=== PATIENT | male | born 1965 | race Caucasian/White ===

== ENCOUNTER 2021-02-20 14:17 | Emergency (ER) | payer BC ==
[2021-02-20] MEDS ORDERED: Lidocaine 1% 10 ML MDV INJECT ONE (15:10)
--- NOTE | 2021-02-20 16:01 | EDM.PDOC ---
ED HPI GENERAL MEDICAL PROBLEM - General Chief Complaint: Laceration Stated Complaint: GENITAL COMPLAINT Time Seen by Provider: 02/20/21 14:36 Source of Information: Reports: Patient, Family, RN Notes Reviewed History Limitations: Reports: No Limitations - History of Present Illness INITIAL COMMENTS - FREE TEXT/NARRATIVE: Patient is a 55-year-old male presenting to the emergency department with complaints of a laceration to the left side of his scrotum. He states he was standing on a ladder that was approximately 2 feet off the ground when he slid off of it. His scrotum hooked on a garbage can causing laceration. He has no pain to the area. He is on Coumadin for a clotting disorder. He states that he is up-to-date on his tetanus vaccination - Related Data Allergies Allergy/AdvReac Type Severity Reaction Status Date / Time cyclosporine AdvReac Severe Seizure Verified 02/20/21 14:34 Home Meds: Home Meds Losartan Potassium 100 mg PO DAILY 02/20/21 [History] Warfarin [Coumadin] 7.5 mg PO DAILY 02/20/21 [History] lamoTRIgine [Lamotrigine] 100 mg PO DAILY 02/20/21 [History] levETIRAcetam [Keppra] 500 mg PO DAILY 02/20/21 [History] Past Medical History Cardiovascular History: Reports: Hypertension Neurological History: Reports: Seizure Social & Family History - Tobacco Use Tobacco Use Status *Q: Never Tobacco User - Caffeine Use Caffeine Use: Reports: Coffee - Recreational Drug Use Recreational Drug Use: No ED ROS GENERAL - Review of Systems Review Of Systems: Comprehensive ROS is negative, except as noted in HPI. ED EXAM, SKIN/RASH Exam: See Below Exam Limited By: No Limitations General Appearance: Alert, WD/WN, No Apparent Distress Respiratory/Chest: No Respiratory Distress, Lungs Clear, Normal Breath Sounds, No Accessory Muscle Use, Chest Non-Tender Cardiovascular: Normal Peripheral Pulses, Regular Rate, Rhythm, No Edema, No Gallop, No JVD, No Murmur, No Rub (Male) Exam: Other (1 cm laceration to the left scrotum. No tenderness to palpation of the scrotum or testicles. No active bleeding.). No: Scrotal Swelling, Scrotum Tenderness (L), Scrotum Tenderness (R), Testicular Mass, Testicular Tenderness (L), Testicular Tenderness (R) Neurological: Alert, Oriented, CN II-XII Intact, Normal Cognition, Normal Gait, Normal Reflexes, No Motor/Sensory Deficits Psychiatric: Normal Affect, Normal Mood ED SKIN PROCEDURES - Laceration/Wound Repair Left Scrotum Appearance: Subcutaneous Anesthetic Type: Local Local Anesthesia - Lidocaine (Xylocaine): 1% Plain Local Anesthetic Volume: 1cc Skin Prep: Chlorhexidine (Hibiciens), Providone-Iodine (Betadine), Saline, Sterile Drape Exploration/Debridement/Repair: Wound Explored, No Foreign Material Found Closed with: Sutures Lac/Wound length In cm: 1 Suture Size: 4-0 # of Sutures: 3 Suture Type: Nylon Sterile Dressing Applied: Nurse Tetanus Status Addressed: Yes Complications: No Course - Vital Signs Last Recorded V/S: Last Vital Signs Temp 97.6 F 02/20/21 14:31 Pulse 54 L 02/20/21 14:31 Resp 16 02/20/21 14:31 BP 129/91 H 02/20/21 14:31 Pulse Ox 99 02/20/21 14:31 - Orders/Labs/Meds Meds: Medications Discontinued Medications Generic Name Dose Route Start Last Admin Trade Name Julian PRN Reason Stop Dose Admin Lidocaine HCl 10 ml 02/20/21 15:10 02/20/21 15:49 Lidocaine 1% 10 Ml Mdv INJECT 02/20/21 15:11 10 ml ONETIME ONE Administration - Re-Assessments/Exams Free Text/Narrative Re-Assessment/Exam: Patient is a 55-year-old male presenting to the emergency department with complaints of a laceration to his left scrotum. He states he was standing on approximately 3 foot ladder when he fell off. On the way down his scrotum snagged a garbage can. He denies any pain to the area. The testicles are not tender to palpation. There is no active bleeding at this time. Patient is on Coumadin and checks his INR weekly. He is up-to-date on his tetanus vaccination. See procedure notes for closure. Discharge instructions as documented. Departure - Departure Time of Disposition: 15:59 Disposition: Home, Self-Care 01 Condition: Good Clinical Impression: Laceration of scrotum Qualifiers: Encounter type: initial encounter Qualified Code(s): S31.31XA - Laceration without foreign body of scrotum and testes, initial encounter - Discharge Information *PRESCRIPTION DRUG MONITORING PROGRAM REVIEWED*: No *COPY OF PRESCRIPTION DRUG MONITORING REPORT IN PATIENT SURESH: No Instructions: Laceration Care, Adult Referrals: Fortino Escalona MD [Primary Care Provider] - Forms: ED Department Discharge Additional Instructions: You were seen in the emergency department today for a laceration to your scrotum. The wound was cleansed and closed with 3 sutures. These should stay intact for 7 days. After that time they may be removed in the clinic by a nurse. The number to schedule a nurse visit is [phone]. Keep the wound clean and dry. Wash with normal soap and water twice daily. You may shower like normal. Do not submerge the wound in water. Watch for signs of infection including increased redness, swelling, or purulent drainage. If these should occur, you should be seen either in the clinic or in the emergency department as antibiotic treatment may be needed. Return to the ER as needed. Sepsis Event Note (ED) - Evaluation Sepsis Screening Result: No Definite Risk - Focused Exam Vital Signs: Vital Signs Temp Pulse Resp BP Pulse Ox 02/20/21 14:31 97.6 F 54 L 16 129/91 H 99
== END 2021-02-20 16:00 | disposition home or self-care (01) ==
LOC: JD.ED 14:17
DX: S31.31XA Laceration without foreign body of scrotum and testes, initial encounter (principal); I10 Essential (primary) hypertension; R56.9 Unspecified convulsions; Z88.8 Allergy status to other drugs, medicaments and biological substances; Z79.01 Long term (current) use of anticoagulants; Z79.899 Other long term (current) drug therapy; W11.XXXA Fall on and from ladder, initial encounter; Y92.89 Other specified places as the place of occurrence of the external cause; Y99.0 Civilian activity done for income or pay
CPT/HCPCS: 12001; 99282; 99282-25

== ENCOUNTER 2021-02-25 12:27 | Emergency (ER) | payer BC ==
--- NOTE | 2021-02-25 13:01 | EDM.PDOC ---
ED HPI GENERAL MEDICAL PROBLEM - General Chief Complaint: General Stated Complaint: LOWER ABDONMEN PAIN DUE TO ACCIDENT Time Seen by Provider: 02/25/21 12:39 Source of Information: Reports: Patient History Limitations: Reports: No Limitations - History of Present Illness INITIAL COMMENTS - FREE TEXT/NARRATIVE: The patient presents with scrotal swelling and ecchymosis. Five days ago he was on a ladder and fell and landed on a pipe on his scrotum. He had a 1cm laceration that was repaired here. He is on coumadin for antiphospholipid syndrome. He says the swelling and pain are worse. He has no trouble urinating. He has no abdominal pain. Onset: Sudden Duration: Day(s): Location: Reports: Other (scrotum) Quality: Reports: Sharp Severity: Moderate Improves with: Reports: None Worsens with: Reports: None Associated Symptoms: Reports: No Other Symptoms Left Scrotum Pain Score (Numeric/FACES): 7 - Related Data Allergies Allergy/AdvReac Type Severity Reaction Status Date / Time cyclosporine AdvReac Severe Seizure Verified 02/25/21 12:43 Home Meds: Home Meds Losartan Potassium 100 mg PO DAILY 02/20/21 [History] Warfarin [Coumadin] 7.5 mg PO DAILY 02/20/21 [History] lamoTRIgine [Lamotrigine] 100 mg PO DAILY 02/20/21 [History] levETIRAcetam [Keppra] 500 mg PO DAILY 02/20/21 [History] Past Medical History HEENT History: Reports: Impaired Vision Cardiovascular History: Reports: Hypertension Neurological History: Reports: Seizure Social & Family History - Tobacco Use Tobacco Use Status *Q: Never Tobacco User Second Hand Smoke Exposure: No - Caffeine Use Caffeine Use: Reports: Coffee, Tea - Recreational Drug Use Recreational Drug Use: No ED ROS GENERAL - Review of Systems Review Of Systems: See Below Constitutional: Reports: No Symptoms HEENT: Reports: No Symptoms Respiratory: Reports: No Symptoms Cardiovascular: Reports: No Symptoms Endocrine: Reports: No Symptoms GI/Abdominal: Reports: No Symptoms : Reports: Other (Sweeling, pain and ecchymosis to his scrotum) ED EXAM, GENERAL - Physical Exam Exam: See Below Exam Limited By: No Limitations General Appearance: Alert, No Apparent Distress Ears: Normal External Exam Nose: Normal Inspection Head: Atraumatic, Normocephalic Neck: Normal Inspection Respiratory/Chest: No Respiratory Distress, Lungs Clear, Normal Breath Sounds Cardiovascular: Regular Rate, Rhythm, No Edema, No Murmur GI/Abdominal: Soft, Non-Tender, No Organomegaly, No Mass (Male) Exam: Other (Edema of the scrotum with ecchymosis and pain upon palpation. There is also a 1cm laceration to the left scrotum with sutures. There is also ecchymosis and swelling to the tissue above the pubis and to the left and right groin.) Course - Vital Signs Last Recorded V/S: Last Vital Signs Temp 98.5 F 02/25/21 12:38 Pulse 56 L 02/25/21 12:38 Resp 12 02/25/21 12:38 BP 147/86 H 02/25/21 12:38 Pulse Ox 99 02/25/21 12:38 - Orders/Labs/Meds Orders: Active Orders 24 hr Category Date Time Status Cardiac Monitoring [RC] . DIRECTED Care 02/25/21 12:54 Active Labs: Laboratory Tests 02/25/21 02/25/21 02/25/21 Range/Units 13:04 13:04 13:04 WBC 6.22 (4.23-9.07) K/mm3 RBC 4.33 L (4.63-6.08) M/mm3 Hgb 13.2 L (13.7-17.5) gm/dl Hct 37.1 L (40.1-51.0) % MCV 85.7 D (79.0-92.2) fl MCH 30.5 (25.7-32.2) pg MCHC 35.6 H (32.2-35.5) g/dl RDW Std Deviation 35.6 (35.1-43.9) fL Plt Count 218 D (163-337) K/mm3 MPV 9.5 (9.4-12.3) fl Neut % (Auto) 68.1 H (34.0-67.9) % Lymph % (Auto) 20.9 L (21.8-53.1) % [place] % (Auto) 8.7 (5.3-12.2) % Eos % (Auto) 1.8 (0.8-7.0) Baso % (Auto) 0.5 (0.1-1.2) % Neut # (Auto) 4.24 (1.78-5.38) K/mm3 Lymph # (Auto) 1.30 L (1.32-3.57) K/mm3 [place] # (Auto) 0.54 (0.30-0.82) K/mm3 Eos # (Auto) 0.11 (0.04-0.54) K/mm3 Baso # (Auto) 0.03 (0.01-0.08) K/mm3 PT 25.7 H (9.7-12.0) SECONDS INR 2.44 Sodium 143 (136-145) mEq/L Potassium 4.4 (3.5-5.1) mEq/L Chloride 106 (98-107) mEq/L Carbon Dioxide 27 (21-32) mEq/L Anion Gap 14.4 (5-15) BUN 34 H (7-18) mg/dL Creatinine 1.4 H (0.7-1.3) mg/dL Est Cr Clr Drug Dosing 64.67 mL/min Estimated GFR (MDRD) 52 (>60) mL/min BUN/Creatinine Ratio 24.3 H (14-18) Glucose 106 (74-106) mg/dL Calcium 8.5 (8.5-10.1) mg/dL Total Bilirubin 0.7 (0.2-1.0) mg/dL AST 24 (15-37) U/L ALT 41 (16-63) U/L Alkaline Phosphatase 58 (46-116) U/L Total Protein 6.2 L (6.4-8.2) g/dl Albumin 3.2 L (3.4-5.0) g/dl Globulin 3.0 gm/dL Albumin/Globulin Ratio 1.1 (1-2) - Re-Assessments/Exams Free Text/Narrative Re-Assessment/Exam: 02/25/21 13:01 I have ordered an US of the scrotum and labs. 02/25/21 14:38 His Hgb was low at 13.2. His INR is elevated 2.44. His creatinine is elevated at 1.4. His US shows right sided inguinal hernia with bowel the right hemiscrotum. Blood and hematoma within the left side of the scrotum within measurements as noted above. No intratesticular abnormality is appreciated. I called Dr Courdamunch the urologist natural remedy consultant at [facility]. He said at this point he would not do surgery but he did recommend if possible to stop the coumadin. The patient will check with his doctor. Departure - Departure Time of Disposition: 14:45 Disposition: Home, Self-Care 01 Condition: Good Clinical Impression: Scrotal hematoma Laceration of scrotum Qualifiers: Encounter type: initial encounter Qualified Code(s): S31.31XA - Laceration without foreign body of scrotum and testes, initial encounter - Discharge Information *PRESCRIPTION DRUG MONITORING PROGRAM REVIEWED*: Not Applicable *COPY OF PRESCRIPTION DRUG MONITORING REPORT IN PATIENT SURESH: Not Applicable Referrals: Kenji Duran MD [Primary Care Provider] - Forms: ED Department Discharge Additional Instructions: Talk to your doctor about the coumadin. Try to find some support underwear. If you have more pain or swelling please return. This should reabsorb over the next few months. Sepsis Event Note (ED) - Evaluation Sepsis Screening Result: No Definite Risk - Focused Exam Vital Signs: Vital Signs Temp Pulse Resp BP Pulse Ox 02/25/21 12:38 98.5 F 56 L 12 147/86 H 99 - My Orders Last 24 Hours: My Active Orders 02/25/21 12:54 Cardiac Monitoring [RC] . DIRECTED - Assessment/Plan Last 24 Hours: My Active Orders 02/25/21 12:54 Cardiac Monitoring [RC] . DIRECTED
--- NOTE | 2021-02-25 14:16 | US ---
Testicular ultrasound: Multiple real-time images of both testicles were obtained. Comparison: No prior testicular imaging is available. Findings: Both testicles have a homogeneous appearance. Arterial and venous blood flow are seen within both testicles. There is bowel noted within the right hemiscrotum. This is compatible with inguinal hernia. Soft tissue finding is seen within the left side of the scrotum with fluid. This is felt compatible with blood and hematoma. This finding measures 6.0 x 4.4 x 2.9 cm. Measurements: Right testicle: 4.0 x 2.9 x 2.7 cm Left testicle: 4.0 x 3.0 x 2.3 cm Impression: 1. Right-sided inguinal hernia with bowel within the right hemiscrotum. 2. Blood and hematoma within the left side of the scrotum with measurements as noted above. 3. No intratesticular abnormality is appreciated. Diagnostic code #3
== END 2021-02-25 14:55 | disposition home or self-care (01) ==
LOC: JD.ED 12:27
DX: S31.31XA Laceration without foreign body of scrotum and testes, initial encounter (principal); R56.9 Unspecified convulsions; I10 Essential (primary) hypertension; Z88.8 Allergy status to other drugs, medicaments and biological substances; Z79.01 Long term (current) use of anticoagulants; Z79.899 Other long term (current) drug therapy; W11.XXXA Fall on and from ladder, initial encounter
CPT/HCPCS: 36415; 76870; 76870-26; 80053; 85025; 85610; 93975; 99284; 99284-25